=== PATIENT | male | born 1945 | race Caucasian/White ===

== ENCOUNTER 2024-06-27 14:00 | Outpatient (CLI) | payer MEDICARE, SELFPAY | END 2024-06-27 14:01 | disposition home or self-care (01) | PROVIDERS: Visit Provider Radiology Radiation Oncology | DX: C61 Malignant neoplasm of prostate (principal) | CPT/HCPCS: 72195 ==

== ENCOUNTER 2024-07-12 11:26 | Outpatient (CLI) | payer MEDICARE, SELFPAY ==
[2024-07-12 11:57] LABS: Creatinine* 1.1 mg/dL (0.5-1.5); Estimated Glomerular Filt Rate 68 ml/min
--- NOTE | 2024-07-12 13:00 | CRLHL7_ITS ---
For Patients: As a result of the 21st Century Cures Act, medical imaging exams and procedure reports are released immediately into your electronic medical record. You may view this report before your referring provider. If you have questions, please contact your health care provider. INDICATION: Vocal cord paralysis. COMPARISON: None. TECHNIQUE: CT soft tissue neck with IV contrast. Isovue 370, 95 cc. FINDINGS: Normal bilateral parotid and submandibular glands. Normal thyroid gland. No enlarged cervical lymph nodes. No supraclavicular adenopathy. Nasopharynx and oropharynx are clear. No inflammation within the paravertebral fat pads are Rich original space. Normal thickness of the epiglottis. 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 Asymmetric medialization of the left vocal cord with a left laryngeal ventricle consistent with vocal cord paralysis. Asymmetric thickening of the left aryepiglottic fold. Within the visualized superior mediastinum, there is asymmetric soft tissue prominence measuring approximately 15 x 18 mm (best appreciated series 4, image 84) located just inferior and medial to the aortic arch and lateral to the left margin of the trachea. Additional, there is flattening of the left lateral margin of the trachea (series 4, image 87). Finding is indeterminate and may represent a prominent lymph node. Location of this node may also impinge upon the left recurrent laryngeal nerve. Atelectasis at the lung apices. Normal alignment the cervical spine. Cervical spondylosis. Prominent ventral bridging osteophytes C2-3 through C6-7. Mild mass effect upon the posterior aspect of the hypopharynx and larynx. Visualized paranasal sinuses and mastoid air cells are clear. IMPRESSION: 1. Left vocal cord paralysis. Associated medialization of the left vocal cord, left laryngeal ventricle, and asymmetric thickening of the left aryepiglottic fold. 2. Asymmetric soft tissue prominence within the superior mediastinum just inferior and medial to the aortic arch and lateral to the left margin of the trachea. Associated flattening of the left lateral margin of the trachea. Findings indeterminate and may represent a prominent lymph node. This may impinge upon the course of the left recurrent laryngeal nerve. Consider follow-up with CT of the chest for further evaluation 3. No adenopathy. 4. 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 Cervical spondylosis Please note that all CT scans at this facility use dose modulation, iterative reconstruction, and/or weight-based dosing when appropriate to reduce radiation dose to as low as reasonably achievable. Dictated by Abran Calderon MD @ 07/13/2024 3:40:40 PM (Electronically Signed)
== END 2024-07-12 11:27 | disposition home or self-care (01) ==
LOC: CT 11:28
PROVIDERS: Visit Provider Otolaryngology Plastic Surgery within the Head & Neck
DX: J38.01 Paralysis of vocal cords and larynx, unilateral (principal); M47.812 Spondylosis without myelopathy or radiculopathy, cervical region
CPT/HCPCS: 36415; 70491; 82565; Q9967